=== PATIENT | female | born 1965 | race Caucasian/White ===

== ENCOUNTER 2020-01-02 05:46 | Inpatient (IN) ==
--- NOTE | 2019-12-16 15:10 | PAT Medication Instructions ---
Medication Instructions Date of Service December 16, 2019 Home Medications Allergy 1 tab PO QAM acetaminophen [Tylenol] 325 mg PO QID PRN ascorbic acid (vitamin C) [Vitamin C] 1 g PO QAM aspirin 81 mg PO QAM cholecalciferol (vitamin D3) [Vitamin D3] 50 mcg PO QAM cyanocobalamin (vitamin B-12) [Vitamin B-12] 2,500 mcg SUBLINGUAL QAM empagliflozin [Jardiance] 10 mg PO QAM losartan [Cozaar] 50 mg PO QAM metformin 1,000 mg PO BID pantoprazole [Protonix] 40 mg PO QAM paroxetine HCl [Paxil] 20 mg PO QAM simvastatin [Zocor] 80 mg PO HS DO NOT take the morning of surgery Allergy 1 tab PO QAM ascorbic acid (vitamin C) [Vitamin C] 1 g PO QAM cholecalciferol (vitamin D3) [Vitamin D3] 50 mcg PO QAM cyanocobalamin (vitamin B-12) [Vitamin B-12] 2,500 mcg SUBLINGUAL QAM empagliflozin [Jardiance] 10 mg PO QAM losartan [Cozaar] 50 mg PO QAM metformin 1,000 mg PO BID Take morning of surgery With a small sip of water, OTHERWISE NOTHING TO EAT OR DRINK AFTER MIDNIGHT: acetaminophen [Tylenol] 325 mg PO QID PRN (okay to take up to 4 hours prior to surgery if needed) aspirin 81 mg PO QAM pantoprazole [Protonix] 40 mg PO QAM paroxetine HCl [Paxil] 20 mg PO QAM Take evening before surgery acetaminophen [Tylenol] 325 mg PO QID PRN (if needed) metformin 1,000 mg PO BID simvastatin [Zocor] 80 mg PO HS Other Notes If you have any questions please call us at [phone] or [phone] or [phone] or [phone]
--- NOTE | 2019-12-19 12:58 | Anesthesiology Consultation ---
Date of Service December 19, 2019 Assessment & Plan (1) Encounter for pre-operative examination: COVID Status: As of 12/18 assessment, patient denies travel to endemic area, known exposure/sick contacts, or symptoms of COVID19. Patient instructed that they and their household members must follow strict social distancing guidelines, wear a mask in public and avoid travel for 14 days prior to surgery. Preoperative COVID19 testing to be completed prior to surgery per surgeon's arrangements. Patient made aware to self-isolate as much as possible between COVID testing and surgery. Chart Review Chart Review: Acceptable Risk for Surgery and Patient seen in Pre Admission Testing Teaching & Discussion Instructed NPO after midnight before surgery, except medications with 15 cc of water. Medication instructions provided according to the PAT guidelines. History Surgery Operation Date: 01/02/20 07:00 Proposed Procedures p L3-L4 Decompression and Fusion, L4-S1 Hardware Removal, Spinal Cord Monitoring - Orion Major, Height/Weight Height: 5 ft 4 in Weight: 73.9 kg Allergies Allergy/AdvReac Type Severity Reaction Status Date / Time nifedipine Allergy Intermediate RASH Verified 12/11/19 14:18 Medications Home Medications Medication Instructions Recorded Confirmed Last Taken Allergy 1 tab PO QAM 12/11/19 12/11/19 Unknown acetaminophen [Tylenol] 325 mg PO QID PRN 12/11/19 12/11/19 Unknown ascorbic acid (vitamin C) [Vitamin 1 g PO QAM 12/11/19 12/11/19 Unknown C] aspirin 81 mg PO QAM 12/11/19 12/11/19 Unknown cholecalciferol (vitamin D3) 50 mcg PO QAM 12/11/19 12/11/19 Unknown [Vitamin D3] cyanocobalamin (vitamin B-12) 2,500 mcg SUBLINGUAL QAM 12/11/19 12/11/19 Unknown [Vitamin B-12] empagliflozin [Jardiance] 10 mg PO QAM 12/11/19 12/11/19 Unknown losartan [Cozaar] 50 mg PO QAM 12/11/19 12/11/19 Unknown metformin 1,000 mg PO BID 12/11/19 12/11/19 Unknown pantoprazole [Protonix] 40 mg PO QAM 12/11/19 12/11/19 Unknown paroxetine HCl [Paxil] 20 mg PO QAM 12/11/19 12/11/19 Unknown simvastatin [Zocor] 80 mg PO HS 12/11/19 12/11/19 Unknown Past Medical History Medical History (Updated 12/20/19 @ 10:49 by Bill Matute) Degenerative disc disease DM type 2 (diabetes mellitus, type 2) NIDDM GERD (gastroesophageal reflux disease) History of depression Hyperlipidemia Hypertension Osteoarthritis Poor historian Spinal stenosis Exercise / Class Metabolic Activity II 4-5 Yardwork/Stairs/Walk up hill (Denies CP or SOB with 1 FOS, limited by back and leg pain) Past Surgical History Surgical History Accidental awareness under general anesthesia during procedure History of ankle surgery x 7 Right ankle History of esophagogastroduodenoscopy (EGD) History of eye surgery History of knee surgery Left History of lumbar surgery History of surgery on wrist Left History of tonsillectomy History of tooth extraction Past Anesthesia History No Hx of Anesthesia Complications (other than awareness) and No Family Hx of Anesthesia Complications History of PONV No Hx of PONV and No Hx of Motion Sickness Social History Smoking Status: Never smoker Do You Dip or Chew Tobacco: No Hx Alcohol Use: Yes Alcohol type: beer, wine and hard liquor alcohol intake frequency: a few times a week Hx Substance Use: Yes substance use type: marijuana Substance Use Type Other:: medical marijuana, occasionally vape Review of Systems Pt denies any recent chest pain, shortness of breath, palpitations, cough, fever, URI, or uncontrolled acid reflux. Physical Exam Vital Signs BP: 139/94 P: 94bpm SPO2: 98% RA T: 98.7 F R: 16 ENMT Mouth: + dentures (upper) and + small oral opening; no chipped teeth and no loose teeth Thyromental Distance: > or= 3.5 Finger Breadths (3.5) Mallampati Class: I Neck normal visual inspection; neck extension not limited Respiratory normal respiratory effort Auscultation: lungs clear to auscultation bilaterally Cardiovascular Rate/Rhythm: regular rhythm and + tachycardic Heart Sounds: no murmur Extremities: no edema Testing Laboratory Results 12/19/19 13:12 12/19/19 13:12 PT 9.8 Seconds (9.0-12.0) 12/19/19 13:12 INR 0.9 (0.9-1.1) 12/19/19 13:12 APTT 23.9 Seconds (21.0-31.0) 12/19/19 13:12 Urine Color Yellow 12/19/19 13:12 Urine Appearance Clear (Clear) 12/19/19 13:12 Urine pH 6.5 (4.5-7.5) 12/19/19 13:12 Ur Specific [place] 1.007 (1.000-1.030) 12/19/19 13:12 Urine Protein Negative (Negative) 12/19/19 13:12 Urine Glucose (UA) 2+ (Negative) H 12/19/19 13:12 Urine Ketones Negative (Negative) 12/19/19 13:12 Urine Nitrite Negative (Negative) 12/19/19 13:12 Ur Leukocyte Esterase Trace (Negative) H 12/19/19 13:12 Urine WBC (Auto) 1-5 /hpf (0-5) 12/19/19 13:12 Urine RBC (Auto) 0-4 /hpf (0-4) 12/19/19 13:12 U Hyaline Cast (Auto) 0 /lpf (0-5) 12/19/19 13:12 U Epithel Cells (Auto) 10-20 /lpf (0-5) H 12/19/19 13:12 Urine Bacteria (Auto) Negative (Negative) 12/19/19 13:12 Blood Type A Negative 12/19/19 13:12 Antibody Screen NEGATIVE 12/19/19 13:12 Electrocardiogram Date: 12/19/19 Findings: + NSR @ (76bpm) and + no change from (2011) Chest X-Ray Date: 12/19/19 Findings: + NAD Stress Test Date: 03/13/18 Type: nuclear Findings: + WNL Resting EF: 70% No infarct or ischemia. Normal wall motion.
--- NOTE | 2019-12-19 13:52 | XRay Report ---
XR chest Pre-admission PA/Lat CLINICAL HISTORY: Preoperative chest COMPARISON STUDY: No previous studies for comparison. FINDINGS: The cardiac and mediastinal contours are normal. There is no evidence of focal pulmonary co nsolidation. There is no evidence of failure. No pleural effusions are visualized.[ IMPRESSION: No active disease in the chest. ACT 112: Negative or not required by law. Electronically signed by: Dylon Anderson M.D. 12/19/2019 1:51 PM
[2019-12-19 14:21] LABS: Basophils # (auto) 0.02 K/uL (0-0.2); Basophils % (auto) 0.3 %; Eosinophils # (auto) 0.31 K/uL (0-0.5); Eosinophils % (auto) 4.7 %; Hematocrit (blood only) 40.6 % (37-47); Immature Granulocytes # (auto) 0.02 K/uL (0.00-0.02); Immature Granulocytes % (auto) 0.3 %; Lymphocytes # (auto) 2.37 K/uL (1.2-3.4); Mean Corpuscular Hemoglobin 31.9 pg (25-34); Mean Corpuscular Volume 99.8 fL (80-100); Mean Platelet Volume 11.1 fL (7.4-10.4); Monocytes # (auto) 0.44 K/uL (0.11-0.59); Monocytes % (auto) 6.7 %; Neutrophils # (auto) 3.42 K/uL (1.4-6.5); Platelet Count 227 K/uL (130-400); RDW Coefficient of Variation 13.7 % (11.5-14.5); RDW Standard Deviation 49.6 fL (36.4-46.3); Red Blood Count 4.07 M/uL (4.2-5.4); White Blood Count 6.58 K/uL (4.8-10.8)
[2019-12-19 14:25] LABS: BUN Creatinine Ratio 14.9 (10-20); Calcium 9.6 mg/dl (8.5-10.1); Creatinine Clr Calc Pharmacy 68.1 ml/min; Est GFR (African American) 80.8; Est GFR (Non-African American) 69.7; Potassium 4.8 mmol/L (3.5-5.1)
[2019-12-19 14:32] LABS: INR 0.9 (0.9-1.1); Partial Thromboplastin Ratio 0.9; Partial Thromboplastin Time 23.9 Seconds (21.0-31.0); Prothrombin Time 9.8 Seconds (9.0-12.0)
[2019-12-19 14:38] LABS: Appearance Urine Clear (Clear); Bacteria Urine Automated Negative (Negative); Bilirubin Urine Negative (Negative); Blood Urine Negative (Negative); Cast Urine Automated 0 /lpf (0-5); Color Urine Yellow; Glucose Urine UA 2+ (Negative); Ketones Urine Negative (Negative); Leukocyte Esterase Urine Trace (Negative); Nitrite Urine Negative (Negative); Protein Urine Negative (Negative); RBC Urine Automated 0-4 /hpf (0-4); Specific Gravity Urine 1.007 (1.000-1.030); Urobilinogen Urine Negative (Negative); pH Urine 6.5 (4.5-7.5)
--- NOTE | 2019-12-19 16:32 | Electrocardiogram Report ---
Test Reason : Blood Pressure : / mmHG Vent. Rate : 076 BPM Atrial Rate : 076 BPM P-R Int : 158 ms QRS Dur : 080 ms QT Int : 374 ms P-R-T Axes : 064 055 037 degrees QTc Int : 420 ms Normal sinus rhythm Normal ECG When compared with ECG of 26-JUL-2011 11:58, No significant change was found Confirmed by Dmitriy Holbrook ([id number]) on 12/19/2019 4:32:31 PM Referred By: Orion Major Confirmed By:Dmitriy Holbrook
[2020-01-02] MEDS ORDERED: GABAPENTIN 900 MG DOSE PO SCH (06:00)
[2020-01-02] MEDS ORDERED: LR 15ML/HR IV SCH (06:00)
[2020-01-02] MEDS ORDERED: ACETAMINOPHEN 500 MG TAB PO SCH (06:00)
[2020-01-02] MEDS ORDERED: CEFAZOLIN 2000MG 2,000 MG/15 ML SYR IV SCH (06:00)
[2020-01-02] MEDS ORDERED: CeleBREX 200 MG CAP PO SCH (06:00)
[2020-01-02] MEDS ORDERED: ROCURONIUM BROMIDE 10 MG/ML 5 ML VIAL IV ONE (06:54)
[2020-01-02] MEDS ORDERED: DEXAMETHASONE SOD INJ 4 MG/ML VIAL ONE (06:54)
[2020-01-02] MEDS ORDERED: PROPOFOL IV EMULSION 10 MG/ML 20 ML VIAL IV ONE (06:54)
[2020-01-02] MEDS ORDERED: LIDOCAINE HCL 2% 2 ML VIAL/AMP(20MG/ML) INFIL ONE (06:54)
[2020-01-02] MEDS ORDERED: ONDANSETRON INJ 2 MG/ML 2 ML VIAL ONE (06:54)
[2020-01-02] MEDS ORDERED: fentaNYL citrate 100 MCG/2 ML VIAL ONE ×2 (06:55→06:56)
[2020-01-02] MEDS ORDERED: MIDAZOLAM HCL 1 MG/ML 2ML VIAL ONE (06:56)
[2020-01-02] MEDS ORDERED: BUPIVACAINE/EPINEPHRINE 0.25% 1:200,000 30 ML VIAL ONE (07:03)
[2020-01-02] MEDS ORDERED: BACITRACIN INJ 50,000 UNIT VIAL ONE (07:03)
[2020-01-02] MEDS ORDERED: ATROPINE SULFATE 0.1 MG/ML 10ML SYR IV PRN (07:11)
[2020-01-02] MEDS ORDERED: HYDROmorphone INJ 1 MG/ML SYRINGE IV PRN ×2 (07:11→11:14)
[2020-01-02] MEDS ORDERED: LABETALOL HCL IV 5 MG/ML 20ML IV PRN (07:11)
[2020-01-02] MEDS ORDERED: ePHEDrine sulfate 50 MG/ML AMP IV PRN (07:11)
[2020-01-02] MEDS ORDERED: PHENYLEPHRINE 100MCG/ML 5ML SYR IV PRN (07:11)
[2020-01-02] MEDS ORDERED: ONDANSETRON INJ 2 MG/ML 2 ML VIAL IV PRN ×2 (07:11→11:14)
[2020-01-02] MEDS ORDERED: MEPERIDINE HCL 25 MG/ML CARP/VIAL IV PRN (07:11)
--- NOTE | 2020-01-02 07:32 | History & Physical Bridge Note ---
Date of Service January 02, 2020 History & Physical Bridge Note I have examined the patient, reviewed the History & Physical and in the interval since the performance of the History & Physical I have noted the following changes of clinical significance: no changes noted
--- NOTE | 2020-01-02 07:34 | History & Physical Report ---
Date of Service January 02, 2020 Assessment & Plan (1) Neurogenic claudication due to lumbar spinal stenosis: Admission and Anticipated Discharge Date Admission Date: L3-L4 decompression fusion, L4-S1 hardware removal History of Present Illness Chief Complaint: Back and leg pain Primary Care Provider: Raji Martinez MD This is a 54-year-old female who presents with chronic persistent back and leg pain. After failing extensive course of nonoperative care is here for surgical invention. Allergies Allergy/AdvReac Type Severity Reaction Status Date / Time nifedipine Allergy Intermediate RASH Verified 01/02/20 06:38 Home Medications Home Medications Medication Instructions Recorded Confirmed Type Allergy 1 tab PO QAM 12/11/19 01/02/20 History acetaminophen [Tylenol] 325 mg PO QID PRN 12/11/19 01/02/20 History ascorbic acid (vitamin C) [Vitamin 1 g PO QAM 12/11/19 01/02/20 History C] aspirin 81 mg PO QAM 12/11/19 01/02/20 History cholecalciferol (vitamin D3) 50 mcg PO QAM 12/11/19 01/02/20 History [Vitamin D3] cyanocobalamin (vitamin B-12) 2,500 mcg SUBLINGUAL QAM 12/11/19 01/02/20 History [Vitamin B-12] empagliflozin [Jardiance] 10 mg PO QAM 12/11/19 01/02/20 History losartan [Cozaar] 50 mg PO QAM 12/11/19 01/02/20 History metformin 1,000 mg PO BID 12/11/19 01/02/20 History pantoprazole [Protonix] 40 mg PO QAM 12/11/19 01/02/20 History paroxetine HCl [Paxil] 20 mg PO QAM 12/11/19 01/02/20 History simvastatin [Zocor] 80 mg PO HS 12/11/19 01/02/20 History Past Med/Surg History Medical History (Updated 01/02/20 @ 07:33 by Orion Major DO) Degenerative disc disease DM type 2 (diabetes mellitus, type 2) NIDDM GERD (gastroesophageal reflux disease) History of depression Hyperlipidemia Hypertension Osteoarthritis Poor historian Spinal stenosis Surgical History Accidental awareness under general anesthesia during procedure History of ankle surgery x 7 Right ankle History of esophagogastroduodenoscopy (EGD) History of eye surgery History of knee surgery Left History of lumbar surgery History of surgery on wrist Left History of tonsillectomy History of tooth extraction Family History Mother Diabetes Other No family history of adverse response to anesthesia Social History Smoking Status: Never smoker Second Hand Exposure: Yes (as a child); Do You Dip or Chew Tobacco: No; Hx Alcohol Use: Yes Alcohol type: beer, wine and hard liquor Hx Substance Use: Yes Substance Use Type Other:: medical marijuana, occasionally vape Preferred Language: Malian Communication Ability: Effective Agency Manager Required: No Beliefs That Will Affect Care: None Current Living Situation: Spouse Feels Safe at Home: Yes Safety Concerns: Feels Safe At This Time Physical Exam Physical Exam: Patient is alert and oriented neurologically intact. Heart regular rate and rhythm. Lungs clear to auscultation. Results & Data ([facility]) Vital Signs (Past 12 Hours) Vital Signs Temp Pulse Resp BP Pulse Ox 01/02/20 06:57 36.9 C 85 16 135/90 97
[2020-01-02] MEDS ORDERED: KETAMINE HCL INJ 50 MG/ML 10 ML VIAL ONE (08:08)
[2020-01-02] MEDS ORDERED: SODIUM CHLORIDE 0.9% INJ 10 ML VIAL ONE (08:11)
[2020-01-02] MEDS ORDERED: HYDROmorphone INJ 2 MG/ML SYR/VIAL ONE (08:13)
[2020-01-02] MEDS ORDERED: FLOSEAL HEMOSTATIC MATRIX 10ML TOP ONE (08:32)
[2020-01-02] MEDS ORDERED: GLYCOPYRROLATE 0.2 MG/ML VIAL ONE (09:34)
[2020-01-02] MEDS ORDERED: NEOSTIGMINE METHYLSULFATE 1 MG/ML 10ML VIAL ONE (09:34)
--- NOTE | 2020-01-02 09:44 | Operative Report ---
Post Operative Report Pre & Post Diagnosis Operation Date: 01/02/20 07:45 Pre-Op Diagnosis: Intervertebral Disc Disorders with Radiculopathy Post-Op Diagnosis: Intervertebral Disc Disorders with Radiculopathy I identified the patient and participated in the time-out.: Yes Procedure Operation Date: 01/02/20 07:45 Actual Procedures #1 removal of posterior instrumentation L4-5 and L5-S1. #2 exploration of fusion L4-5 and L5-S1. #3 lumbar decompression with bilateral medial facetectomies and foraminotomies L2-3 and L3-4. #4 posterior spinal fusion L3-4 per #5 placement posterior instrumentation L3-4. #6 interbody fusion L3-4. #7 placement of peek cage 12 x 22 mm at L3-4. #8 placement of locally harvested morselized autograft in the posterior lateral gutters. #9 placement infuse collagen sponge bone master graft in the posterior lateral gutters and ostial amp in the interbody space. Surgeon Orion Major, Bottle Cleaner Savita Cisse Estimated Blood Loss 350 Findings Consistent with Post-Op Diagnosis Specimens None Indications This is a 54-year-old female presents above-mentioned diagnosis after failed extensive course of nonoperative care is here for the above-mentioned procedure. Description of Procedure Patient was met with identified informed consent obtained. Patient was then taken to the operative suite underwent intubation placed in a prone position on the Aleksandr table on top of the Jhoan frame. All bony prominences well-padded eyes inspected to ensure no external pressure placed upon the bed at this point the lumbar spine was prepped and draped in a sterile fashion. Sharp dissection with assistance of Bovie cautery was performed down to and exposing the lamina and transverse processes of L3 and the instrumentation at L4-L5 and sacral ala bilaterally. Then proceeded move the hardware bilaterally I was unable to successfully remove the right S1 pedicle screws was completely ensconced and bone. I did explore the fusion mass was well mature and intact. Informed complete laminectomy of L3 partial laminectomy of L2 including bilateral medial facetectomies and foraminotomies addressing severe spinal stenosis. Pedicle screws were then placed in L3 and L4 bilaterally with assistance of fluoroscopy and the appropriately sized julio placed. By way of a transforaminal approach on the right complete discectomy of L3-4 was performed endplates coated to subcortical any bone and a 12 x 22 mm peek cage filled with osteo-bone graft tapped in position. The rods were then locked in final position bilaterally. Transverse processes of L3 and L4 were burred to subcortical bone. Infuse collagen sponge mass graft local autograft was placed in the posterior lateral gutters. 15 round ASHUTOSH drain inserted. The incision was then closed with 1 Vicryl in the fascia 2-0 Vicryl subcutaneously and 4 Monocryl for final skin closure. Steri-Strip sterile dressings placed. Patient waken taken PACU stable condition. Please note spinal cord monitoring visualized at the procedure no changes noted. Lastly Savita Cisse was present throughout the entire procedure involved the patient positioning complex portions of the surgery and final skin closure. I attest to the content of the Intraoperative Record and any orders documented therein. Any exceptions are noted below.
[2020-01-02] MEDS: fentaNYL citrate 100 MCG/2 ML VIAL IV PRN ×4 (10:06→10:21)
--- NOTE | 2020-01-02 10:14 | Fluoroscopy Report ---
FL lumbar spine 2-3V CLINICAL HISTORY: L3-L4 DECOMPRESSION AND FUSION L4-S1 HW REMOVAL COMPARISON STUDY: None FLUOROSCOPY TIME: 9 seconds NUMBER OF FLUOROSCOPIC IMAGES: 2 FINDINGS: Findings consistent with an L4-S1 hardware removal procedure. Interval L3-L4 decompression and fusion. IMPRESSION: Image intensifier support for hardware revision, laminectomy, and fusion. ACT 112: Negative or not required by law. The above report was generated using voice recognition software. It may contain grammatical, syntax or spelling errors. Electronically signed by: Steve Lu M.D. 01/02/2020 10:13 AM
--- NOTE | 2020-01-02 10:46 | Anesthesiology Progress Note ---
Date of Service January 02, 2020 Anesthesia Post Procedure Vital Signs Vital Signs: Temp Pulse Pulse Resp BP BP Pulse Ox 01/02/20 10:35 36.6 C 87 13 131/72 98 01/02/20 10:25 97 H 16 107/78 99 01/02/20 10:15 88 11 L 121/75 100 01/02/20 10:05 89 15 130/79 99 01/02/20 09:58 36.3 C L 93 H 17 138/86 99 01/02/20 06:57 36.9 C 85 16 135/90 97 Pain Intensity Bilateral Lower Back: Pain Intensity: 2 Transfer of Care Handoff Completed per policy Notes Mental Status: alert / awake / arousable Patient Amnestic to Procedure: Yes Nausea / Vomiting: adequately controlled Pain: adequately controlled Airway Patency, RR, SpO2: stable & adequate BP & HR: stable & adequate Hydration State: stable & adequate Anesthetic Complications: no major complications apparent and Pt Satisfied with anesthetic care
[2020-01-02] MEDS ORDERED: NALOXONE HCL 0.4 MG/1 ML VIAL/CARP IV PRN (11:14)
[2020-01-02] MEDS ORDERED: ALUMINUM/MAGNESIUM SUSP 30 ML UDC PO PRN (11:14)
[2020-01-02] MEDS ORDERED: FAMOTIDINE 20 MG TAB PO PRN (11:14)
[2020-01-02] MEDS ORDERED: bisacodyL 10 MG SUPP PR PRN (11:14)
[2020-01-02] MEDS ORDERED: PROMETHAZINE HCL 12.5 MG in SODIUM CHLORIDE 0.9% 50 ML IV PRN (11:14)
[2020-01-02] MEDS ORDERED: MAGNESIUM HYDROXIDE SUSP 30 ML UDC PO PRN (11:14)
[2020-01-02] MEDS ORDERED: DO NOT ADMINISTER FLU VACCINE PRN (11:14)
[2020-01-02] MEDS ORDERED: LORazepam 0.5 MG TAB PO PRN (11:14)
[2020-01-02] MEDS ORDERED: DO NOT ADMINISTER PNEUMOCOCCAL VACCINE PRN (11:14)
[2020-01-02] MEDS ORDERED: HYDROmorphone INJ 0.5 MG/0.5 ML SYR IV PRN (11:14)
[2020-01-02] MEDS ORDERED: METOCLOPRAMIDE HCL INJ 5 MG/ML 2 ML VIAL IV PRN (11:14)
[2020-01-02] MEDS ORDERED: ACETAMINOPHEN 1,000 MG/100 ML VIAL IV PRN (11:14)
[2020-01-02] MEDS ORDERED: ONDANSETRON 4 MG OD TAB PO PRN (11:14)
[2020-01-02] MEDS ORDERED: SOD PHOSPHATE/SOD BIPHOSPHATE ENEMA 132 ML BTL PR PRN (11:14)
[2020-01-02] MEDS ORDERED: LORazepam 0.5 MG/1 ML VIAL IV PRN (11:14)
[2020-01-02] MEDS ORDERED: TRAMADOL HCL 50 MG TABLET PO PRN (11:14)
[2020-01-02] MEDS ORDERED: PHARMACY GLYCEMIC MGMT CONSULT PRN (11:40)
[2020-01-02] MEDS ORDERED: GLUCAGON FOR INJ 1 MG VIAL SQ PRN (11:52)
[2020-01-02] MEDS ORDERED: DEXTROSE 50% 50 ML SYRINGE IV PRN (11:52)
[2020-01-02] MEDS ORDERED: GLUCOSE 40% GEL 15 GM TUBE PO PRN (11:52)
[2020-01-02] MEDS ORDERED: GLUCOSE 10 TABS/TUBE PO PRN (11:52)
[2020-01-02] MEDS ORDERED: CARBOHYDRATES FOR HYPOGLYCEMIA PO PRN (11:52)
--- NOTE | 2020-01-02 11:57 | Consultation ---
Date of Consultation January 02, 2020 Assessment & Plan (1) Status post lumbar surgery: Post op day# 0 S/P removal instrumentation L4-S1 and L3-L4 decompression and fusion by Dr Moriah MCCALL #350ml -pain management per ortho -wound management per ortho -PT/OT as appropriate -DVT prophylaxis per ortho -incentive spirometry -monitor H&H for acute blood loss anemia; Pre-op Hgb: 13 (2) DM type 2 (diabetes mellitus, type 2): Unsure of recent A1c Post op BS -Hold metformin and Jardiance -Basal bolus insulin per protocol -A1c in AM (3) Hypertension: BP: 100/68, 128/83 -Will hold losartan and re-evaluate BP tomorrow morning (4) Hyperlipidemia: -Continue statin (5) History of depression: -Continue Paxil (6) GERD (gastroesophageal reflux disease): -Continue PPI DVT Prophylaxis -SCDs per ortho Disposition per primary service Follows with Dr Ramirez in [place] for routine care Pt was seen and care coordinated with Dr Martin. See addendum Thank you for this consultation. We will follow the patient with you during their hospital stay. You can [facility] a [facility]12 via pager @ [phone]. Supervising Physician Co-Signing Physician Notes 54 yo F s/p back surgery this morning. She denies back pain that only occurs with movement. She reports significant throat discomfort s/p intubation. She is hungry and ROS is otherwise negative. She does vape medical marijuana nightly and asked me about the policy. The only other way she takes it is smoking the joint version, and we discussed this can cause lung inflammation and are not "safe." Will check on the formal policy but doubt inhalants that have to be lit will be acceptable while in the hospital. Normal heart exam aside from some tachycardia. No murmur is auscultated. Lungs are CTA bilaterally. Normal sensation to lower extremities and normal flexion and extension of feet. Normal warmth to touch. SCDs in place bilaterally. No gross neurologic deficits. Abdomen is soft, NTND with drain in lower back draining serosanguinous material. Cont plan as listed above. Patient verbalized understanding of insulin usage while in the hospital post-operatively in lieu of her medical hypoglycemic medications. She did receive dexamethasone intraoperatively. Glycemic pharmacist is helping to manage this while she is inpatient. Appreciate this consultation. DO Mario History of Present Illness Requesting Physician: Dr Major Reason for Consultation: Post op medical management Attending Physician: Orion Major DO History of Present Illness Pt is 54 y/o F with PMH DM II, HTN, HLD, depression, GERD seen in consultation for post op medical management s/p L4-S1 instrumentation removal and decompression fusion of L3-L4. Post op pt doing well. Reports pain controlled at this time. Denies any nausea or vomiting. Feels hungry. Denies fever/chills, MEDINA, dizziness, CP, SOB, palpitations, cough, sore throat, choking, abdominal pain, paresthesias, weakness, rashes, urinary symptoms. Allergies Allergy/AdvReac Type Severity Reaction Status Date / Time nifedipine Allergy Intermediate RASH Verified 01/02/20 06:38 Home Medications Home Medications Medication Instructions Recorded Confirmed Type Allergy 1 tab PO QAM 12/11/19 01/02/20 History acetaminophen [Tylenol] 325 mg PO QID PRN 12/11/19 01/02/20 History ascorbic acid (vitamin C) [Vitamin 1 g PO QAM 12/11/19 01/02/20 History C] aspirin 81 mg PO QAM 12/11/19 01/02/20 History cholecalciferol (vitamin D3) 50 mcg PO QAM 12/11/19 01/02/20 History [Vitamin D3] cyanocobalamin (vitamin B-12) 2,500 mcg SUBLINGUAL QAM 12/11/19 01/02/20 History [Vitamin B-12] empagliflozin [Jardiance] 10 mg PO QAM 12/11/19 01/02/20 History losartan [Cozaar] 50 mg PO QAM 12/11/19 01/02/20 History metformin 1,000 mg PO BID 12/11/19 01/02/20 History pantoprazole [Protonix] 40 mg PO QAM 12/11/19 01/02/20 History paroxetine HCl [Paxil] 20 mg PO QAM 12/11/19 01/02/20 History simvastatin [Zocor] 80 mg PO HS 12/11/19 01/02/20 History medical marijuana INHALATION HS PRN 01/02/20 History Patient History Medical History (Updated 01/02/20 @ 11:59 by Linnette Meehan PA-C) Degenerative disc disease DM type 2 (diabetes mellitus, type 2) NIDDM GERD (gastroesophageal reflux disease) History of depression Hyperlipidemia Hypertension Osteoarthritis Poor historian Spinal stenosis Surgical History (Updated 01/02/20 @ 11:59 by Linnette Meehan PA-C) Accidental awareness under general anesthesia during procedure History of ankle surgery x 7 Right ankle History of esophagogastroduodenoscopy (EGD) History of eye surgery History of knee surgery Left History of lumbar surgery History of surgery on wrist Left History of tonsillectomy History of tooth extraction Family History Mother Diabetes Other No family history of adverse response to anesthesia Social History (Updated 01/02/20 @ 11:56 by Linnette Meehan PA-C) Smoking Status: Never smoker Second Hand Exposure: Yes (as a child); Do You Dip or Chew Tobacco: No; Hx Alcohol Use: Yes Alcohol type: beer, wine and hard liquor Alcohol Intake Frequency: 2-3 x/Week Hx Substance Use: Yes Substance Use Type Other:: medical marijuana, occasionally vape Preferred Language: Estonian Communication Ability: Effective Car Tracer Required: No Beliefs That Will Affect Care: None Current Living Situation: Spouse Feels Safe at Home: Yes Safety Concerns: Feels Safe At This Time Review of Systems Review of Systems: All systems reviewed & are unremarkable except as noted in HPI & below Physical Exam Physical Exam: General: no distress, WDWN Head: normocephalic, atraumatic Eyes: conjunctiva non-injected, anicteric ENT: normal inspection external ears, nose, mucous membranes moist Neck: supple, trachea midline Lungs: clear, no respiratory distress, no wheezing/rhonchi/rales CV: regular rhythm, tachycardia at 102, no murmur noted, no pretibial edema Abd: normal BS, soft, non-tender Back: surgical dressing in place, ASHUTOSH drain with serosanguineous drainage Ext: no cyanosis, no calf tenderness; pedal pushes and pulls intact bilaterally, sensation to light touch intact, distal pulses intact Neuro: A&O x 3, no focal deficits noted, normal affect Skin: warm, dry Results & Data ([facility]) Vital Signs (Past 12 Hours) Vital Signs Temp Pulse Pulse Resp BP BP Pulse Ox 01/02/20 11:35 108 H 16 100/68 94 01/02/20 10:56 36.5 C 94 H 16 120/77 100 01/02/20 10:45 87 12 127/72 99 01/02/20 10:35 36.6 C 87 13 131/72 98 01/02/20 10:25 97 H 16 107/78 99 01/02/20 10:15 88 11 L 121/75 100 01/02/20 10:05 89 15 130/79 99 01/02/20 09:58 36.3 C L 93 H 17 138/86 99 01/02/20 06:57 36.9 C 85 16 135/90 97
[2020-01-02] MEDS: OXYCODONE HCL IR 5 MG TAB (IMMEDIATE RELEASE) PO PRN (12:05)
[2020-01-02] MEDS: SODIUM CHLORIDE 0.9% 1000ML 1,000 ML IV SCH ×2 (12:09→21:54)
[2020-01-02] MEDS: KETOROLAC TROMETHAMINE 15 MG/ML VIAL IV SCH ×3 (12:09→22:42)
[2020-01-02] MEDS ORDERED: NovoLIN-N (NPH) PER UNIT CHARGE SQ ONE (13:00)
[2020-01-02] MEDS: INSULIN ASPART 100 UNITS/ML 3 ML PEN SC SCH ×3 (13:06→21:09)
[2020-01-02] MEDS ORDERED: COUGH DROP (SUGAR FREE) LOZ 24 LOZ/1 BOX BUCCAL ONE (14:06)
[2020-01-02] MEDS: CEFAZOLIN 2000MG 2,000 MG/15 ML SYR IV SCH ×2 (16:16→23:03)
[2020-01-02] MEDS: CHLORASEPTIC 1.4% SOLN 180 ML BTL MT PRN (20:39)
[2020-01-02] MEDS: SIMVASTATIN 80 MG TAB PO SCH (20:41)
[2020-01-02] MEDS: DOCUSATE SODIUM/SENNA 50/8.6MG TAB PO SCH (20:54)
[2020-01-02] MEDS: INSULIN GLARGINE SOLOSTAR 100 UNITS/ML 3 ML PEN SC SCH (21:09)
[2020-01-02] MEDS ORDERED: NYSTATIN OINT 15 GM TUBE EXT PRN (21:21)
[2020-01-03] MEDS: OXYCODONE HCL IR 5 MG TAB (IMMEDIATE RELEASE) PO PRN ×2 (01:14→18:24)
[2020-01-03] MEDS: ACETAMINOPHEN 500 MG TAB PO PRN ×2 (03:01→13:59)
[2020-01-03] MEDS: POLYETHYLENE (MIRALAX) 17 GM PACK PO SCH ×4 (05:44→23:16)
[2020-01-03] MEDS: KETOROLAC TROMETHAMINE 15 MG/ML VIAL IV SCH (05:45)
[2020-01-03 05:48] LABS: Eosinophils # (auto) 0.07 K/uL (0-0.5); Eosinophils % (auto) 0.9 %; Hematocrit (blood only) 25.7 % (37-47); Hemoglobin 8.5 g/dL (12.0-16.0); Immature Granulocytes # (auto) 0.02 K/uL (0.00-0.02); Immature Granulocytes % (auto) 0.3 %; Lymphocytes # (auto) 2.11 K/uL (1.2-3.4); Mean Corpuscular Hemoglobin 32.3 pg (25-34); Mean Corpuscular Hgb Conc 33.1 g/dL (32-36); Mean Corpuscular Volume 97.7 fL (80-100); Mean Platelet Volume 9.8 fL (7.4-10.4); Monocytes # (auto) 0.64 K/uL (0.11-0.59); Monocytes % (auto) 8.5 %; Neutrophils % (auto) 62.3 %; Platelet Count 159 K/uL (130-400); RDW Coefficient of Variation 13.5 % (11.5-14.5); RDW Standard Deviation 48.4 fL (36.4-46.3); Red Blood Count 2.63 M/uL (4.2-5.4); White Blood Count 7.54 K/uL (4.8-10.8)
[2020-01-03 06:14] LABS: BUN Creatinine Ratio 18.4 (10-20); Calcium 7.9 mg/dl (8.5-10.1); Creatinine Clr Calc Pharmacy 58.8 ml/min; Est GFR (African American) 67.4; Est GFR (Non-African American) 58.2; Potassium 4.5 mmol/L (3.5-5.1)
[2020-01-03 06:35] LABS: Estimated Average Glucose 128 mg/dl; Hemoglobin A1C 6.1 % (4.5-5.6)
--- NOTE | 2020-01-03 07:38 | Anesthesiology Progress Note ---
Date of Service January 03, 2020 Anesthesia Post Procedure Vital Signs Vital Signs: Temp Pulse Pulse Pulse Resp BP BP 01/03/20 05:41 98 H 111/68 01/03/20 02:48 92 H 92/58 L 96/56 L 01/03/20 02:28 36.6 C 88 16 91/59 L 01/02/20 22:58 36.7 C 94 H 16 104/67 01/02/20 19:41 36.7 C 107 H 18 106/76 01/02/20 15:21 37.2 C 107 H 18 128/86 01/02/20 14:08 36.9 C 112 H 16 134/73 01/02/20 13:10 115 H 18 125/68 01/02/20 12:00 110 H 16 128/83 01/02/20 11:35 108 H 16 100/68 01/02/20 10:56 36.5 C 94 H 16 120/77 01/02/20 10:45 87 12 127/72 01/02/20 10:35 36.6 C 87 13 131/72 01/02/20 10:25 97 H 16 107/78 01/02/20 10:15 88 11 L 121/75 01/02/20 10:05 89 15 130/79 01/02/20 09:58 36.3 C L 93 H 17 138/86 Pulse Ox 01/03/20 05:41 01/03/20 02:48 01/03/20 02:28 96 01/02/20 22:58 95 01/02/20 19:41 94 01/02/20 15:21 95 01/02/20 14:08 95 01/02/20 13:10 96 01/02/20 12:00 95 01/02/20 11:35 94 01/02/20 10:56 100 01/02/20 10:45 99 01/02/20 10:35 98 01/02/20 10:25 99 01/02/20 10:15 100 01/02/20 10:05 99 01/02/20 09:58 99 Pain Intensity Bilateral Lower Back: Pain Intensity: 10 Notes Mental Status: alert / awake / arousable and participated in evaluation Patient Amnestic to Procedure: Yes Nausea / Vomiting: adequately controlled Pain: adequately controlled Airway Patency, RR, SpO2: stable & adequate BP & HR: stable & adequate Hydration State: stable & adequate Anesthetic Complications: no major complications apparent and Pt Satisfied with anesthetic care
[2020-01-03] MEDS ORDERED: LOSARTAN POTASSIUM 50 MG TAB PO SCH (09:00)
[2020-01-03] MEDS ORDERED: NON-FORMULARY MEDICATION (Empagliflozin [Jardiance] 10 MG) PO SCH (09:00)
[2020-01-03] MEDS ORDERED: [UNRECOGNIZED DRUG - REMARK] PO SCH (09:00)
[2020-01-03] MEDS: PANTOprazole 40 MG TAB PO SCH (09:08)
[2020-01-03] MEDS: ASCORBIC ACID 500 MG TAB PO SCH (09:08)
[2020-01-03] MEDS: CHOLECALCIFEROL 1,000 UNITS 25 MCG TAB PO SCH (09:08)
[2020-01-03] MEDS: PARoxetine HCL 20 MG TAB PO SCH (09:08)
[2020-01-03] MEDS: ASPIRIN 81 MG ECTAB PO SCH (09:08)
[2020-01-03] MEDS: INSULIN ASPART 100 UNITS/ML 3 ML PEN SC SCH ×4 (09:09→21:14)
[2020-01-03] MEDS: INSULIN GLARGINE SOLOSTAR 100 UNITS/ML 3 ML PEN SC SCH ×2 (09:10→21:12)
--- NOTE | 2020-01-03 10:07 | Hospitalist Progress Note ---
Date of Service January 03, 2020 Assessment & Plan (1) Status post lumbar surgery: Post op day# 1 S/P removal instrumentation L4-S1 and L3-L4 decompression and fusion by Dr Major EBL #350ml Total ASHUTOSH drain output: 580ml -pain management per ortho -wound management per ortho -PT/OT as appropriate -DVT prophylaxis per ortho -incentive spirometry -Hgb: 8.5 from 13 pre-op consistent with acute blood loss anemia; pt asymptomatic; Monitor H&H and transfuse as needed (2) DM type 2 (diabetes mellitus, type 2): A1c: 6.1 -Hold metformin and Jardiance -Basal bolus insulin per protocol (3) Hypertension: BPs: 92/58, 111/68, 135/71 -Pt asymptomatic -Will continue hold losartan for now and re-evaluate BP (4) Hyperlipidemia: -Continue statin (5) History of depression: -Continue Paxil (6) GERD (gastroesophageal reflux disease): -Continue PPI DVT Prophylaxis -SCDs per ortho Disposition per primary service Follows with Dr Ramirez in [place] for routine care Pt was seen and care coordinated with Dr Martin. See addendum Thank you for this consultation. We will follow the patient with you during their hospital stay. You can reach a member of the [facility] Hospitalist Team 12/12 via pager @ [phone]. Admission and Anticipated Discharge Date Admission Date: January 02, 2020 Supervising Physician Co-Signing Physician Notes Pt was seen and examined. Agreed with Linnette MARTIN exam, assessment and plan. S/P day #1 removal instrumentation L4-S1 and L3-L4 decompression and fusion by Dr Major No Postop complications. Hgb 8.5 today. Continue Incentive spirometry. Continue PT/OT. Pain control. Fall precaution. Continue monitor H/H. MD Courtney Subjective Pt seen and examined sitting up in bed. POD#1. Reports having some back pain but being moderately controlled with pain medication. Jeffery cath still in place. No BM yet, denies abdominal pain. Denies dizziness, lightheadedness, SOB, CP. Eating and drinking well. Denies fever/chills, diaphoresis, N/V, MEDINA, palpitations, abdominal pain, paresthesias, extremity edema, rashes. Review of Systems Review of Systems: All systems reviewed & are unremarkable except as noted in HPI & below Physical Exam Physical Exam: General: no distress, WDWN Head: normocephalic, atraumatic Eyes: conjunctiva non-injected, anicteric ENT: normal inspection external ears, nose, mucous membranes moist Neck: supple, trachea midline Lungs: clear, no respiratory distress, no wheezing/rhonchi/rales CV: regular rhythm, regular rhythm, no murmur noted, no pretibial edema Abd: normal BS, soft, non-tender Back: surgical dressing in place, ASHUTOSH drain with serosanguineous drainage Ext: no cyanosis, no calf tenderness; pedal pushes and pulls intact bilaterally, sensation to light touch intact, distal pulses intact Neuro: A&O x 3, no focal deficits noted, normal affect Skin: warm, dry Results & Data Results & Data ([facility]) Vital Signs (Past 12 Hours) Vital Signs Temp Pulse Pulse Resp BP BP Pulse Ox 01/03/20 08:26 37.1 C 86 18 135/71 98 01/03/20 05:41 98 H 111/68 01/03/20 02:48 92 H 92/58 L 96/56 L 01/03/20 02:28 36.6 C 88 16 91/59 L 96 01/02/20 22:58 36.7 C 94 H 16 104/67 95 Laboratory Results Short CBC 01/03/20 Range/Units 05:33 WBC 7.54 (4.8-10.8) K/uL Hgb 8.5 L (12.0-16.0) g/dL Hct 25.7 L (37-47) % Plt Count 159 (130-400) K/uL BMP 01/03/20 05:33 Sodium 144 Potassium 4.5 Chloride 115 H Carbon Dioxide 26 BUN 20 H Creatinine 1.08 Glucose 131 H Calcium 7.9 L
--- NOTE | 2020-01-03 10:20 | Orthopedic Progress Note ---
Date of Service January 03, 2020 Assessment & Plan (1) Neurogenic claudication due to lumbar spinal stenosis: Admission and Anticipated Discharge Date Admission Date: January 02, 2020 This time we will continue physical therapy monitor her ASHUTOSH output anticipate dis charge home Monday Subjective Back pain controlled leg symptoms markedly improved. Physical Exam Physical Exam: Patient is ambulating halls has good strength testing. Results & Data ([facility]) Vital Signs (Past 12 Hours) Vital Signs Temp Pulse Pulse Resp BP BP Pulse Ox 01/03/20 08:26 37.1 C 86 18 135/71 98 01/03/20 05:41 98 H 111/68 01/03/20 02:48 92 H 92/58 L 96/56 L 01/03/20 02:28 36.6 C 88 16 91/59 L 96 01/02/20 22:58 36.7 C 94 H 16 104/67 95
[2020-01-03] MEDS: CHLORASEPTIC 1.4% SOLN 180 ML BTL MT PRN (12:48)
[2020-01-03] MEDS ORDERED: NURSING DECISION MEDICATION ONE (15:26)
[2020-01-03] MEDS ORDERED: COUGH DROP (SUGAR FREE) LOZ 24 LOZ/1 BOX BUCCAL PRN (15:28)
[2020-01-03 15:54] LABS: Hematocrit (blood only) 25.9 % (37-47); Hemoglobin 8.3 g/dL (12.0-16.0)
[2020-01-03] MEDS: SIMVASTATIN 80 MG TAB PO SCH (21:10)
[2020-01-03] MEDS: DOCUSATE SODIUM/SENNA 50/8.6MG TAB PO SCH (21:10)
[2020-01-04] MEDS: OXYCODONE HCL IR 5 MG TAB (IMMEDIATE RELEASE) PO PRN ×3 (03:04→21:22)
[2020-01-04] MEDS: POLYETHYLENE (MIRALAX) 17 GM PACK PO SCH ×4 (05:37→23:43)
[2020-01-04 05:56] LABS: Hematocrit (blood only) 25.3 % (37-47); Hemoglobin 8.4 g/dL (12.0-16.0); Mean Corpuscular Hemoglobin 32.7 pg (25-34); Mean Corpuscular Hgb Conc 33.2 g/dL (32-36); Mean Corpuscular Volume 98.4 fL (80-100); Mean Platelet Volume 9.4 fL (7.4-10.4); Platelet Count 165 K/uL (130-400); RDW Coefficient of Variation 13.9 % (11.5-14.5); RDW Standard Deviation 49.6 fL (36.4-46.3); Red Blood Count 2.57 M/uL (4.2-5.4)
[2020-01-04 06:14] LABS: BUN Creatinine Ratio 21.2 (10-20); Creatinine Clr Calc Pharmacy 66.1 ml/min; Est GFR (African American) 77.7; Potassium 4.6 mmol/L (3.5-5.1)
[2020-01-04] MEDS: PARoxetine HCL 20 MG TAB PO SCH (07:46)
[2020-01-04] MEDS: PANTOprazole 40 MG TAB PO SCH (07:46)
[2020-01-04] MEDS: ASPIRIN 81 MG ECTAB PO SCH (07:46)
[2020-01-04] MEDS: DEXAMETHASONE SOD PHOSPHATE 8 MG in SYRINGE 0 ML IV SCH (07:46)
[2020-01-04] MEDS: ASCORBIC ACID 500 MG TAB PO SCH (07:46)
[2020-01-04] MEDS: CHOLECALCIFEROL 1,000 UNITS 25 MCG TAB PO SCH (07:47)
[2020-01-04] MEDS: INSULIN ASPART 100 UNITS/ML 3 ML PEN SC SCH ×4 (07:54→21:01)
[2020-01-04] MEDS: INSULIN GLARGINE SOLOSTAR 100 UNITS/ML 3 ML PEN SC SCH ×2 (07:54→21:00)
--- NOTE | 2020-01-04 09:57 | Orthopedic Progress Note ---
Date of Service January 04, 2020 Assessment & Plan (1) Neurogenic claudication due to lumbar spinal stenosis: Admission and Anticipated Discharge Date Admission Date: January 02, 2020 Patient will continue with physical therapy today monitor ASHUTOSH output anticipate d ischarge home tomorrow. Subjective Back pain controlled leg symptoms improved. Physical Exam Physical Exam: Patient is good strength testing appears comfortable. Results & Data ([facility]) Vital Signs (Past 12 Hours) Vital Signs Temp Pulse Resp BP Pulse Ox 01/04/20 06:40 36.6 C 96 H 16 118/77 94 01/04/20 03:50 36.9 C 99 H 16 117/78 95 01/03/20 23:36 36.6 C 87 16 110/72 97
[2020-01-04] MEDS: ACETAMINOPHEN 500 MG TAB PO PRN (12:50)
--- NOTE | 2020-01-04 20:47 | Hospitalist Progress Note ---
Date of Service January 04, 2020 Assessment & Plan (1) Status post lumbar surgery: Post op day# 2 S/P removal instrumentation L4-S1 and L3-L4 decompression and fusion by Dr Major No post op complication ASHUTOSH drainage continue to drain Pain management per ortho Continue PT/OT Continue incentive spirometry Hgb 8.3 today Monitor H/H and transfuse if drops below 8 (2) DM type 2 (diabetes mellitus, type 2): A1c: 6.1 Continue to hold metformin and Jardiance Basal bolus insulin per protocol (3) Hypertension: BP stable Will resume losartan on discharge (4) Hyperlipidemia: Continue statin (5) History of depression: Continue Paxil (6) GERD (gastroesophageal reflux disease): Continue PPI DVT Prophylaxis SCDs per ortho Disposition per primary service Follows with Dr Ramirez in [place] for routine care Thank you for this consultation. We will follow the patient with you during their hospital stay. You [facility] via pager @ [phone]. Admission and Anticipated Discharge Date Admission Date: January 02, 2020 Subjective Pt was seen and examined Sitting in chair with no distress Pt said that pain is controlled She worked with therapy today Denies any chest pain, palpitation and SOB Physical Exam Physical Exam: General- No acute distress Head- atraumatic Eyes- PERRL, EOMI, ENT- oropharynx clear Neck- supple, no JVD Lungs- clear to auscultation Heart- regular rhythm; no murmur Abdomen- normal bowel sounds, soft, nontender Extremities- no calf tenderness Neuro- alert, oriented x 3; PERRL, EOMI; no facial palsy; no dysarthria Skin- warm & dry Results & Data Results & Data ([facility]) Vital Signs (Past 12 Hours) Vital Signs Temp Pulse Resp BP Pulse Ox 01/04/20 15:30 36.8 C 85 18 111/70 97
[2020-01-04] MEDS: DOCUSATE SODIUM/SENNA 50/8.6MG TAB PO SCH (20:58)
[2020-01-04] MEDS: SIMVASTATIN 80 MG TAB PO SCH (20:59)
[2020-01-05] MEDS: ACETAMINOPHEN 500 MG TAB PO PRN ×2 (01:15→09:06)
[2020-01-05 06:04] LABS: Mean Corpuscular Hemoglobin 32.7 pg (25-34); Mean Corpuscular Hgb Conc 33.3 g/dL (32-36); Mean Platelet Volume 10.5 fL (7.4-10.4); Platelet Count 205 K/uL (130-400); RDW Coefficient of Variation 13.6 % (11.5-14.5); Red Blood Count 2.45 M/uL (4.2-5.4); White Blood Count 8.11 K/uL (4.8-10.8)
[2020-01-05] MEDS: POLYETHYLENE (MIRALAX) 17 GM PACK PO SCH (06:31)
--- NOTE | 2020-01-05 08:15 | Discharge Summary ---
Date of Service January 05, 2020 Admission HPI Per Admitting Provider This is a 54-year-old female who presents with chronic persistent back and leg pain. After failing extensive course of nonoperative care is here for surgical invention. Admission Exam (Per Admitting) Constitutional WD/WN, vitals as above Eyes normal visual hoyos by confrontation ENMT external ear and nose normal, oropharynx normal Neck normal visual inspection Respiratory normal respiratory effort Cardiovascular Vessels: dorsalis pedis pulses present Extremities: normal capillary refill Gastrointestinal (Abdomen) Inspection/Auscultation: abdomen normal to inspection Musculoskeletal no cyanosis or clubbing, extremities motor strength 5/5 Extremities: extremities normal to inspection and strength 5/5 throughout Gait: normal gait Skin no rashes, warm and dry Neurologic patellar DTR's 2+ bilat, sensation intact normal touch/pain/proprioception and moves all extremities Psychiatric A+Ox3, euthymic affect Discharge Data Consultations 01/02/20 11:14 Consult Case Management - Discharge Planning Routine Consult Hospitalist Routine Procedures Performed Operation Date: 01/02/20 07:45 Actual Procedures p L3-L4 Decompression and Fusion, L4-S1 Hardware Removal, Spinal Cord Monitoring(Not Applicable) - Orion Major, Hospital Course (1) Neurogenic claudication due to lumbar spinal stenosis: Patient has had an uncomplicated postoperative course. She is being discharged home on postoperative day 3 status post T lift L3-4, removal of hardware L4-S1. Lab values have been stable. She is made great progress in physical therapy. ASHUTOSH drain is dwindling down. Supervising Physician Co-Signing Physician Notes Dr. Orion Major
[2020-01-05] MEDS: ASCORBIC ACID 500 MG TAB PO SCH (08:34)
[2020-01-05] MEDS: PARoxetine HCL 20 MG TAB PO SCH (08:34)
[2020-01-05] MEDS: CHOLECALCIFEROL 1,000 UNITS 25 MCG TAB PO SCH (08:34)
[2020-01-05] MEDS: ASPIRIN 81 MG ECTAB PO SCH (08:34)
[2020-01-05] MEDS: PANTOprazole 40 MG TAB PO SCH (08:34)
[2020-01-05] MEDS: INSULIN GLARGINE SOLOSTAR 100 UNITS/ML 3 ML PEN SC SCH (08:35)
[2020-01-05] MEDS: INSULIN ASPART 100 UNITS/ML 3 ML PEN SC SCH (08:35)
[2020-01-05] MEDS: DEXAMETHASONE SOD PHOSPHATE 8 MG in SYRINGE 0 ML IV SCH (08:37)
--- NOTE | 2020-01-05 09:53 | Hospitalist Progress Note ---
Date of Service January 05, 2020 Assessment & Plan (1) Status post lumbar surgery: Post op day# 3 S/P removal instrumentation L4-S1 and L3-L4 decompression and fusion by Dr Moriah BOYKIN drainage removed today Pain management per ortho Continue PT/OT Continue incentive spirometry Hgb 8.0today Monitor H/H and transfuse if hgb drops below 8 (2) Acute blood loss anemia: Related to recent surgical procedure Hgb 8 today Asymptomatic Advised pt to check CBC in 1 week with her PCP to monitor Hgb Pt was advised if she becomes symptomatic to seek medical attention (3) DM type 2 (diabetes mellitus, type 2): A1c: 6.1 Continue to hold metformin and Jardiance Basal bolus insulin per protocol (4) Hypertension: BP stable Will resume losartan on discharge (5) Hyperlipidemia: Continue statin (6) History of depression: Continue Paxil (7) GERD (gastroesophageal reflux disease): Continue PPI DVT Prophylaxis As per ortho Disposition per primary service Follows with Dr Ramirez in [place] for routine care Thank you for this consultation. We will follow the patient with you during their hospital stay. You can reach a member of the [facility] Hospitalist Team 12/12 via pager @ [phone]. Admission and Anticipated Discharge Date Admission Date: January 02, 2020 Subjective Pt was seen and examined Sitting at the edge of the bed with no distress Pt said that pain is controlled She said that she does not have any dizziness or palpitation She is already dressed to be discharge today by ortho Denies any chest pain, palpitation, dizziness and SOB Physical Exam Physical Exam: General- No acute distress Head- atraumatic Eyes- PERRL, EOMI, ENT- oropharynx clear Neck- supple, no JVD Lungs- clear to auscultation Heart- no murmur Abdomen- normal bowel sounds, soft, nontender Extremities- no calf tenderness Neuro- alert, oriented x 3; PERRL, EOMI; no facial palsy; no dysarthria Skin- warm & dry Results & Data Results & Data ([facility]) Vital Signs (Past 12 Hours) Vital Signs Temp Pulse Pulse Pulse Resp BP BP 01/05/20 08:47 36.8 C 107 H 101 H 98 H 18 92/58 L 130/85 01/05/20 07:52 36.8 C 101 H 18 130/85 01/04/20 23:39 36.8 C 92 H 16 107/71 Pulse Ox 01/05/20 08:47 97 01/05/20 07:52 97 01/04/20 23:39 96
== END 2020-01-05 10:22 | disposition home or self-care (01) | DRG 454 ==
LOC: ASU 05:46 → 3E 10:18